=== PATIENT | male | born 1985 | race Caucasian/White ===

== ENCOUNTER 2018-06-18 23:37 | Emergency (ER) | payer BC ==
--- NOTE | 2018-06-19 01:39 | EDM.PDOC ---
ED HPI GENERAL MEDICAL PROBLEM - General Chief Complaint: Drug or Alcohol Abuse Stated Complaint: DRANK LOTS OF NYQUIL Time Seen by Provider: 06/18/18 23:47 Source of Information: Reports: Patient, Family History Limitations: Reports: No Limitations - History of Present Illness INITIAL COMMENTS - FREE TEXT/NARRATIVE: HISTORY AND PHYSICAL: History of present illness: 33-year-old male presenting to emergency department with his after accidental ingestion of 1-1/4 bottles of NyQuil. As per patient's she states that she came home this evening and noticed that her was stumbling out of bedroom looking sweaty and clammy almost like he was intoxicated. He states that he had not been feeling well and had some "sniffles and cough" so he decided to take NyQuil. He states that he did drink the entire bottle and did not look at the directions. He denies any suicidal ideations, history of depression, or any intentions to hurt himself. States that he just thought that it would make him better. When he told his she immediately called poison control who directed them to the emergency department. Patient is having no abdominal pain. States that yesterday he began having headache as well as left ear pain and sore throat. He does feel congested. Denies any associated fever, chills nausea, vomiting, or diarrhea. Otherwise patient is generally healthy. On exam right tympanic membrane is nonerythematous but mildly bulging. Left tympanic membrane is retracted and nonerythematous. Posterior pharynx is mildly erythematous and swollen as well as tonsils. He does have some anterior cervical and submandibular painful lymphadenopathy. We did call poison control who recommended acetaminophen levels. Review of systems: As per history of present illness and below otherwise all systems reviewed and negative. Past medical history: As per history of present illness and as reviewed below otherwise noncontributory. Surgical history: As per history of present illness and as reviewed below otherwise noncontributory. Social history: No reported history of drug or alcohol abuse. Family history: As per history of present illness and as reviewed below otherwise noncontributory. Physical exam: See above H&P HEENT: Atraumatic, normocephalic, pupils reactive, negative for conjunctival pallor or scleral icterus, mucous membranes moist, mild erythema and swelling to posterior pharynx and tonsils bilaterally , neck supple, mildly enlarged anterior cervical and submandibular painful lymph nodes, trachea midline. Lungs: Clear to auscultation, breath sounds equal bilaterally, chest nontender. Heart: S1S2, regular, negative for clicks, rubs, or JVD. Abdomen: Soft, nondistended, nontender. Negative for masses or hepatosplenomegaly. Negative for costovertebral tenderness. Pelvis: Stable nontender. Genitourinary: Deferred. Rectal: Deferred. Extremities: Atraumatic, negative for cords or calf pain. Neurovascular unremarkable. Neuro: Awake, alert, oriented. Cranial nerves II through XII unremarkable. Cerebellum unremarkable. Motor and sensory unremarkable throughout. Exam nonfocal. Diagnostics: Acetaminophen, rapid strep Therapeutics: Impression: Accidental drug overdose Upper respiratory tract infection Plan: [Acetaminophen level was 3 nonelevated. Rapid strep was negative. Patient most likely has a viral upper respiratory tract infection. I did discuss using over- the-counter Flonase and Afrin 2 puffs each nostril twice daily maximum 4-5 days for his sinus congestion. In addition he can use a Mikayla pot for nasal flushing. Patient is in understanding. He was discharged in good condition with instructions to follow-up with his primary care provider and return the return to the ED if any new or worsening symptoms.] Definitive disposition and diagnosis as appropriate pending reevaluation and review of above. - Related Data Allergies Allergy/AdvReac Type Severity Reaction Status Date / Time aspirin Allergy Swelling Verified 06/19/18 00:01 hydrocodone Allergy Rash Verified 06/19/18 00:01 iodine Allergy Swelling Verified 06/19/18 00:01 Home Meds: Home Meds Medication For Psoriasis 06/19/18 [History] Past Medical History HEENT History: Reports: None Dermatologic History: Reports: Psoriasis, Other (See Below) Other Dermatologic History: abscess - Infectious Disease History Infectious Disease History: Reports: Chicken Pox - Past Surgical History HEENT Surgical History: Reports: Tonsillectomy Dermatological Surgical History: Reports: None Social & Family History - Family History Family Medical History: Noncontributory - Tobacco Use Smoking Status *Q: Current Every Day Smoker Years of Tobacco use: 10 Packs/Tins Daily: 0.5 - Caffeine Use Caffeine Use: Reports: Coffee - Recreational Drug Use Recreational Drug Use: No ED ROS GENERAL - Review of Systems Review Of Systems: ROS reveals no pertinent complaints other than HPI. ED EXAM, GENERAL - Physical Exam Exam: See Below Course - Vital Signs Last Recorded V/S: Last Vital Signs Temp 97.1 F 06/18/18 23:53 Pulse 66 06/18/18 23:53 Resp 18 06/18/18 23:53 BP 133/85 06/18/18 23:53 Pulse Ox 99 06/18/18 23:53 - Orders/Labs/Meds Orders: Active Orders 24 hr Category Date Time Status CULTURE STREP A CONFIRMATION [] Stat Lab 06/19/18 01:16 Results STREP SCRN A RAPID W CULT CONF [] Stat Lab 06/19/18 01:16 Results Labs: Laboratory Tests 06/19/18 Range/Units 00:55 Acetaminophen 3.0 ug/mL Departure - Departure Time of Disposition: 01:49 Disposition: Home, Self-Care 01 Condition: Good Clinical Impression: Accidental drug overdose Qualifiers: Encounter type: initial encounter Qualified Code(s): T50.901A - Poisoning by unspecified drugs, medicaments and biological substances, accidental ( unintentional), initial encounter URI (upper respiratory infection) Qualifiers: URI type: unspecified viral URI Qualified Code(s): J06.9 - Acute upper respiratory infection, unspecified - Discharge Information Referrals: PCP,None [Primary Care Provider] - Forms: ED Department Discharge Additional Instructions: My general discharge The following information is given to patients seen in the emergency department who are being discharged to home. This information is to outline your options for follow-up care. We provide all patients seen in our emergency department with a follow-up referral. The need for follow-up, as well as the timing and circumstances, are variable depending upon the specifics of your emergency department visit. If you don't have a primary care physician on staff, we will provide you with a referral. We always advise you to contact your personal physician following an emergency department visit to inform them of the circumstance of the visit and for follow-up with them and/or the need for any referrals to a consulting specialist. The emergency department will also refer you to a specialist when appropriate. This referral assures that you have the opportunity for follow-up care with a specialist. All of these measure are taken in an effort to provide you with optimal care, which includes your follow-up. Under all circumstances we always encourage you to contact your private physician who remains a resource for coordinating your care. When calling for follow-up care, please make the office aware that this follow-up is from your recent emergency room visit. If for any reason you are refused follow-up, please contact the [facility] Emergency Department at and asked to speak to the emergency department charge nurse. [facility] [address] [place] [id number] Please call above number to follow-up with the primary care provider. Be sure to tell the knee were seen in the emergency department and they wish for you to be seen as soon as possible. Refrain from NyQuil use. Use Flonase and Afrin as we discussed and I instructed. Return to emergency department if any new or worsening symptoms. - My Orders Last 24 Hours: My Active Orders 06/19/18 01:16 CULTURE STREP A CONFIRMATION [RM] Stat STREP SCRN A RAPID W CULT CONF [] Stat - Assessment/Plan Last 24 Hours: My Active Orders 06/19/18 01:16 CULTURE STREP A CONFIRMATION [RM] Stat STREP SCRN A RAPID W CULT CONF [] Stat
== END 2018-06-19 01:55 | disposition home or self-care (01) ==
LOC: MW.ED 23:37
DX: T50.991A Poisoning by other drugs, medicaments and biological substances, accidental (unintentional), initial encounter (principal); J06.9 Acute upper respiratory infection, unspecified; F17.210 Nicotine dependence, cigarettes, uncomplicated; Z91.048 Other nonmedicinal substance allergy status; Z88.8 Allergy status to other drugs, medicaments and biological substances
CPT/HCPCS: 36415; 87081; 87880; 99284; G0480; 99283

== ENCOUNTER 2025-05-15 08:41 | Emergency (ER) | payer OTHER ==
[2025-05-15] MEDS: diphenhydrAMINE 50 MG/ML SDV IVPUSH ONE (09:52)
[2025-05-15] MEDS: methylPREDNISolone Sodium Succinate 125 MG/2 ML SDV IVPUSH ONE (09:52)
== END 2025-05-15 11:45 | disposition home or self-care (01) ==
LOC: MW.ED 08:41
DX: R21 Rash and other nonspecific skin eruption (principal); Z88.8 Allergy status to other drugs, medicaments and biological substances; Z79.899 Other long term (current) drug therapy; Z87.891 Personal history of nicotine dependence
CPT/HCPCS: 96361; 96374; 96375; 99282; J1200; J1308; J2919; J7030; 99283

== ENCOUNTER 2025-05-31 18:01 | Emergency (ER) | payer OTHER | END 2025-05-31 19:47 | disposition home or self-care (01) | LOC: MW.ED 18:01 | DX: R59.9 Enlarged lymph nodes, unspecified (principal); Z88.8 Allergy status to other drugs, medicaments and biological substances; Z79.899 Other long term (current) drug therapy; F17.200 Nicotine dependence, unspecified, uncomplicated | CPT/HCPCS: 99282 ==